=== PATIENT | female | born 1965 | race Caucasian/White ===

== ENCOUNTER 2017-12-06 12:34 | Emergency (ER) | payer OTHER ==
[~2017-12-06] VITALS: Ht 157.5 cm; Wt 87.1 kg
[2017-12-06] MEDS ORDERED: ULTRAM50 MG PO (13:59)
[2017-12-06] MEDS ORDERED: NEURONTIN600 MG PO (13:59)
[2017-12-06 14:14] VITALS: BP 176/106
== END 2017-12-06 14:15 | disposition home or self-care (01) ==
LOC: EME 12:34
DX: G62.9 Polyneuropathy, unspecified (principal); G89.29 Other chronic pain; F17.200 Nicotine dependence, unspecified, uncomplicated
CPT/HCPCS: 99281; 99284

== ENCOUNTER 2017-12-25 21:31 | Emergency (ER) | payer OTHER ==
[~2017-12-25] VITALS: Ht 157.5 cm; Wt 86.0 kg
[~2017-12-25 21:31] MED LIST: NEURONTIN600 MG PO; ULTRAM50 MG PO
[2017-12-26 06:11] LABS: ALBUMIN 4.1 g/dL (3.2-4.8); CHLORIDE 105 mEq/L (99-109); HEMOGLOBIN 13.9 G/DL (11.9-15.5); MCH 33.6 PG (29.0-34.0); MCHC 33.9 G/DL (30.0-36.0); POTASSIUM 3.6 mEq/L (3.7-5.4); RBC DIS.WIDTH-CV 12.9 % (11.8-14.6); RED BLOOD COUNT 4.14 M/uL (3.80-5.20); SODIUM 141 mEq/L (136-147); WHITE BLOOD COUNT 8.3 K/uL (4.1-10.2)
[2017-12-26 06:13] LABS: PLATELET COUNT 258 K/uL (156-360)
[2017-12-26 06:14] LABS: GLUCOSE 82 mg/dL (70-99); TOTAL PROTEIN 6.3 g/dL (6.4-8.3)
[2017-12-26 06:15] LABS: TOTAL BILIRUBIN 0.3 mg/dL (0.0-1.0)
[2017-12-26 06:16] LABS: SERUM ETHYL ALCOHOL 56 mg/dL
[2017-12-26 06:17] LABS: ALKALINE PHOSPHATASE 33 IU/L (3-129); CREATININE 0.8 mg/dL (0.6-1.3); GFR ESTIMATE (CALCULATED) > 59 mL/min/
[2017-12-26 06:18] LABS: UREA NITROGEN (BUN) 14 mg/dL (9-23)
[2017-12-26 06:19] LABS: AST (GOT) 14 IU/L (2-34)
[2017-12-26 06:20] LABS: ALT (GPT) 14 IU/L (3-49)
[2017-12-26 06:21] LABS: LIPASE 20 U/L (1.0-51.0)
[2017-12-26 06:23] LABS: TROP-I INTERPRETATION NEGATIVE; TROPONIN-I < 0.01 ng/mL (0.0-0.30)
[2017-12-26] MEDS ORDERED: ULTRAM50 MG PO (06:35)
[2017-12-26] MEDS ORDERED: GRALISE600 MG PO (06:35)
[2017-12-26 06:47] VITALS: BP 139/94
== END 2017-12-26 06:48 | disposition home or self-care (01) ==
LOC: EME 21:31
PROVIDERS: Emergency Medicine
DX: R07.89 Other chest pain (principal); M79.1 Myalgia; G62.9 Polyneuropathy, unspecified; F17.200 Nicotine dependence, unspecified, uncomplicated
CPT/HCPCS: 71046; 80053; 83690; 83880; 84484; 85027; 93005; 99281; 99284; G0480

== ENCOUNTER → 2017-12-26 | Outpatient (CLI) | payer OTHER ==
[~2017-12-26] MED LIST changes: +GRALISE600 MG PO
== END | disposition home or self-care (01) ==
LOC: EKG 08:12
DX: I05.1 Rheumatic mitral insufficiency (principal); I07.1 Rheumatic tricuspid insufficiency; I09.89 Other specified rheumatic heart diseases
CPT/HCPCS: 93306

== ENCOUNTER 2018-01-27 18:53 | Emergency (ER) | payer OTHER ==
[~2018-01-27] VITALS: Ht 157.5 cm; Wt 84.1 kg
[2018-01-27 19:56] LABS: HEMATOCRIT 44.3 % (36.0-46.0); HEMOGLOBIN 15.3 G/DL (11.9-15.5); MCH 33.8 PG (29.0-34.0); MCHC 34.5 G/DL (30.0-36.0); MCV 97.8 FL (83-99); PLATELET COUNT 133 K/uL (156-360); RBC DIS.WIDTH-CV 14.1 % (11.8-14.6); RBC DIS.WIDTH-SD 51.5 % (39-53); RED BLOOD COUNT 4.53 M/uL (3.80-5.20); WHITE BLOOD COUNT 5.3 K/uL (4.1-10.2)
[2018-01-27 20:41] LABS: CHLORIDE 103 MEQ/L (99-109); CREATININE 0.7 MG/DL (0.6-1.3); GFR ESTIMATE (CALCULATED) > 59 mL/min/; GLUCOSE 99 mg/dL (70-99); POTASSIUM 3.8 MEQ/L (3.7-5.4); SODIUM 143 MEQ/L (136-147); UREA NITROGEN (BUN) 10 mg/dL (9-23)
[2018-01-27 23:01] LABS: SERUM ETHYL ALCOHOL 289 mg/dL
[2018-01-27 23:27] VITALS: BP 141/98
== END 2018-01-27 23:28 | disposition home or self-care (01) ==
LOC: EME 18:53
DX: R20.2 Paresthesia of skin (principal); F10.10 Alcohol abuse, uncomplicated; R53.1 Weakness; R20.0 Anesthesia of skin; R00.1 Bradycardia, unspecified; R94.31 Abnormal electrocardiogram [ECG] [EKG]; Y90.8 Blood alcohol level of 240 mg/100 ml or more; Z87.891 Personal history of nicotine dependence
CPT/HCPCS: 70450; 71046; 80048; 85027; 93005; 99281; 99285; G0480

== ENCOUNTER 2018-01-29 09:15 | Emergency (ER) | payer OTHER ==
[~2018-01-29] VITALS: Ht 157.5 cm; Wt 85.0 kg
[2018-01-29 10:19] LABS: HEMATOCRIT 42.8 % (36.0-46.0); MCH 33.8 PG (29.0-34.0); MCV 96.4 FL (83-99); PLATELET COUNT 139 K/uL (156-360); RBC DIS.WIDTH-CV 13.2 % (11.8-14.6); RBC DIS.WIDTH-SD 47.7 % (39-53); RED BLOOD COUNT 4.44 M/uL (3.80-5.20); WHITE BLOOD COUNT 4.4 K/uL (4.1-10.2)
[2018-01-29 10:56] LABS: CHLORIDE 98 MEQ/L (99-109); CREATININE 0.7 MG/DL (0.6-1.3); GFR ESTIMATE (CALCULATED) > 59 mL/min/; GLUCOSE 102 mg/dL (70-99); POTASSIUM 3.8 MEQ/L (3.7-5.4); SODIUM 141 MEQ/L (136-147); UREA NITROGEN (BUN) 15 mg/dL (9-23)
[2018-01-29 13:30] VITALS: BP 123/77
== END 2018-01-29 13:32 | disposition home or self-care (01) ==
LOC: EME 09:15
DX: R42 Dizziness and giddiness (principal); R20.0 Anesthesia of skin; I10 Essential (primary) hypertension; Z87.891 Personal history of nicotine dependence
CPT/HCPCS: 71046; 80048; 85027; 93005